=== PATIENT | female | born 1940 | race Caucasian/White ===

== ENCOUNTER 2023-09-18 02:54 | Inpatient (IN) | payer OTHER, MEDICARE ==
[~2023-09-18] VITALS: Ht 152.4 cm; Wt 63.5 kg
[~2023-09-18 02:54] MED LIST: ARMO150T6 PO; ARMOUR THYROID PO; BIOT25008 PO; EPIG1000 PO; GLUC-160 PO; HYDR-3927 PO; LISI20TA30 PO; LORA-258 PO; OMEG100037 PO; OMEP20CA15 PO; VENL75CA PO
[2023-09-18 03:01] VITALS: BP_SYST 102; PULSE 62; RESP 14; TEMP 98.2; O2SAT 98
[2023-09-18] MEDS: MORPHINE 4 MG INJ. 4 MG/ML VIAL IVP ONE (03:31)
[2023-09-18] MEDS ORDERED: ACETAMINOPHEN 325 MG TABLET PO PRN (04:00)
[2023-09-18] MEDS: NACL 0.9% 1,000 ML IV SCH (04:00)
[2023-09-18 04:43] LABS: BASOPHILS % (AUTO) 0.2 % (0.0-2.0); EOSINOPHILS % (AUTO) 0.5 % (0.0-4.0); HEMATOCRIT 40.5 % (36-48); HEMOGLOBIN 13.2 g/dL (12.0-16.0); LYMPHOCYTES # (AUTO) 0.8 K/uL (1.0-5.5); LYMPHOCYTES % (AUTO) 11.9 % (20.5-51.5); MEAN CORPUSCULAR HEMOGLOBIN 31 pg (27-31); MEAN CORPUSCULAR HGB CONC 33 % (32-36); MEAN CORPUSCULAR VOLUME 96 fL (79.0-98.0); MONOCYTES % (AUTO) 15.1 % (1.7-9.3); NEUTROPHILS # (AUTO) 4.9 K/uL (1.8-7.7); NEUTROPHILS % (AUTO) 72.3 % (40.0-70.0); PLATELET COUNT (AUTO) 155 K/uL (130-430); RED BLOOD CELL COUNT(AUTO) 4.23 MIL/uL (4.2-6.2); RED CELL DISTRIBUTION WIDTH 12.4 % (9.0-15.0); WHITE BLOOD COUNT (AUTO) 6.8 K/uL (4.8-10.8)
[2023-09-18 04:58] LABS: PROTHROMBIN TIME 10.8 SECS (9.5-12.5)
[2023-09-18 05:40] LABS: ANION GAP 5 (5-15); CALCIUM 8.2 mg/dL (8.4-11.0); CARBON DIOXIDE 30 mmol/L (23-29); CHLORIDE 108 mmol/L (98-107); CREATININE 0.87 mg/dL (0.55-1.30); GLUCOSE 138 mg/dL (74-106); POTASSIUM 4.6 mmol/L (3.5-5.1); SODIUM SERUM 143 mmol/L (136-145); UREA NITROGEN, BLOOD 30 mg/dL (8-21)
[2023-09-18] MEDS: MORPHINE 2 MG/ML INJ. SYRINGE IVP PRN ×2 (07:12→20:52)
[2023-09-18] MEDS ORDERED: HYDR-3917 PO (07:57)
[2023-09-18] MEDS ORDERED: CARV6.2554 PO (07:57)
[2023-09-18] MEDS ORDERED: ARMOUR PO (07:57)
[2023-09-18] MEDS ORDERED: MEMA10TA22 PO (07:57)
[2023-09-18] MEDS ORDERED: hydrALAZINE HCL 20 MG/ML VIAL IVP PRN (10:45)
[2023-09-18 11:51] VITALS: BP_SYST 108; PULSE 70; RESP 18; TEMP 98.2
[2023-09-18 12:00] VITALS: BP_SYST 107; PULSE 70; RESP 18; TEMP 98.2; O2SAT 96
[2023-09-18 12:51] VITALS: O2SAT 95
[2023-09-18 16:20] VITALS: BP_SYST 112; PULSE 68; RESP 18; TEMP 97.8; O2SAT 96
[2023-09-18 20:01] VITALS: TEMP 98
[2023-09-18] MEDS: ONDANSETRON HCL 4 MG/2 ML VIAL IVP PRN (20:53)
[2023-09-19] VITALS (7 sets, daily range): BP systolic 99–141; PULSE 80–116; RESP 16–18; TEMP 97.2–98.9; O2SAT 93–98
[2023-09-19 06:12] LABS: BASOPHILS % (AUTO) 0.3 % (0.0-2.0); EOSINOPHILS # (AUTO) 0.2 K/uL (0.0-0.4); EOSINOPHILS % (AUTO) 2.7 % (0.0-4.0); HEMATOCRIT 38.1 % (36-48); HEMOGLOBIN 12.5 g/dL (12.0-16.0); LYMPHOCYTES % (AUTO) 16.8 % (20.5-51.5); MEAN CORPUSCULAR HEMOGLOBIN 32 pg (27-31); MEAN CORPUSCULAR HGB CONC 33 % (32-36); MEAN CORPUSCULAR VOLUME 97 fL (79.0-98.0); MONOCYTES # (AUTO) 0.8 K/uL (0.0-1.0); MONOCYTES % (AUTO) 13.8 % (1.7-9.3); NEUTROPHILS # (AUTO) 4.1 K/uL (1.8-7.7); NEUTROPHILS % (AUTO) 66.4 % (40.0-70.0); PLATELET COUNT (AUTO) 135 K/uL (130-430); RED BLOOD CELL COUNT(AUTO) 3.94 MIL/uL (4.2-6.2); RED CELL DISTRIBUTION WIDTH 12.8 % (9.0-15.0); WHITE BLOOD COUNT (AUTO) 6.1 K/uL (4.8-10.8)
[2023-09-19 07:01] LABS: ALANINE AMINOTRANSFERASE 341 U/L (12-78); ALBUMIN 2.9 g/dL (3.4-4.8); ANION GAP 6 (5-15); ASPARTATE AMINOTRANSFERASE 246 U/L (10-37); CALCIUM 8.2 mg/dL (8.4-11.0); CARBON DIOXIDE 28 mmol/L (23-29); CHLORIDE 107 mmol/L (98-107); CREATININE 0.76 mg/dL (0.55-1.30); GLUCOSE 112 mg/dL (74-106); POTASSIUM 4.4 mmol/L (3.5-5.1); SODIUM SERUM 141 mmol/L (136-145); TOTAL BILIRUBIN 1.2 mg/dL (0.0-1.0); TOTAL PROTEIN, SERUM 6.1 g/dL (6.4-8.3); UREA NITROGEN, BLOOD 20 mg/dL (8-21)
[2023-09-19 10:34] LABS: BILIRUBIN,URINE NEGATIVE (NEGATIVE); BLOOD, URINE 1+ (NEGATIVE); CLARITY/URINE CLEAR (CLEAR); COLOR,URINE YELLOW (YELLOW); GLUCOSE,URINE NEGATIVE (NEGATIVE); KETONES,URINE NEGATIVE (NEGATIVE); LEUKOCYTE ESTERASE ,URINE NEGATIVE (NEGATIVE); NITRITE, URINE NEGATIVE (NEGATIVE); PROTEIN URINE NEGATIVE (NEGATIVE)
[2023-09-19 10:35] LABS: BACTERIA,URINE None Seen /HPF (None Seen); UROBILINOGEN,URINE 0.2 (0.2-1.0); WBC,URINE NONE SEEN /HPF (0-3)
[2023-09-19] MEDS ORDERED: ceFAZolin SODIUM 2 GM VIAL ONE (12:10)
[2023-09-19] MEDS ORDERED: LORazepam 1 MG TABLET PO SCH (12:15)
[2023-09-19] MEDS ORDERED: ONDANSETRON HCL 4 MG/2 ML VIAL IVP PRN (13:00)
[2023-09-19] MEDS ORDERED: hydrALAZINE HCL 20 MG/ML VIAL IVP PRN (13:00)
[2023-09-19] MEDS ORDERED: NALOXONE HCL 0.4 MG/ML AMP (NARCAN) IVP PRN (13:00)
[2023-09-19] MEDS ORDERED: HYDROmorphone 1 MG/ML INJ. CARTRIDGE IVP PRN (13:00)
[2023-09-19] MEDS ORDERED: MIDAZOLAM HCL 5 MG/5 ML VIAL IVP PRN (13:00)
[2023-09-19] MEDS ORDERED: METOCLOPRAMIDE HCL 10 MG/2 ML VIAL IVP PRN (13:00)
[2023-09-19] MEDS: ACETAMINOPHEN I.V. 1000 MG 100 ML IV ONE (14:09)
[2023-09-19] MEDS ORDERED: VENLAFAXINE HCL Non-Formulary 75 MG CAP.SR.24H PO SCH (21:00)
[2023-09-19] MEDS ORDERED: OMEGA-3/DHA/EPA/FISH OIL 1 GM CAPSULE PO SCH (21:00)
[2023-09-19] MEDS: MEMANTINE HCL 5 MG TABLET PO SCH (21:23)
[2023-09-19] MEDS: ceFAZolin SODIUM 2 GM in D5W 100 ML IV SCH (21:24)
[2023-09-20 00:36] VITALS: BP_SYST 98; PULSE 111; RESP 17; TEMP 98.5; O2SAT 93
[2023-09-20 06:36] LABS: BASOPHILS % (AUTO) 0.2 % (0.0-2.0); HEMOGLOBIN 7.9 g/dL (12.0-16.0); LYMPHOCYTES # (AUTO) 0.9 K/uL (1.0-5.5); LYMPHOCYTES % (AUTO) 7.3 % (20.5-51.5); MEAN CORPUSCULAR HEMOGLOBIN 32 pg (27-31); MEAN CORPUSCULAR HGB CONC 33 % (32-36); MEAN CORPUSCULAR VOLUME 96 fL (79.0-98.0); MONOCYTES # (AUTO) 1.5 K/uL (0.0-1.0); MONOCYTES % (AUTO) 12.9 % (1.7-9.3); NEUTROPHILS # (AUTO) 9.4 K/uL (1.8-7.7); NEUTROPHILS % (AUTO) 79.6 % (40.0-70.0); PLATELET COUNT (AUTO) 126 K/uL (130-430); RED CELL DISTRIBUTION WIDTH 12.4 % (9.0-15.0); WHITE BLOOD COUNT (AUTO) 11.8 K/uL (4.8-10.8)
[2023-09-20] MEDS: oxyCODONE HCL 5 MG TABLET PO PRN (06:41)
[2023-09-20 07:08] LABS: ANION GAP 9 (5-15); CALCIUM 7.6 mg/dL (8.4-11.0); CARBON DIOXIDE 22 mmol/L (23-29); CHLORIDE 110 mmol/L (98-107); CREATININE 0.76 mg/dL (0.55-1.30); GLUCOSE 153 mg/dL (74-106); POTASSIUM 4.1 mmol/L (3.5-5.1); SODIUM SERUM 141 mmol/L (136-145); UREA NITROGEN, BLOOD 19 mg/dL (8-21)
[2023-09-20 08:00] VITALS: BP_SYST 105; PULSE 115; RESP 18; TEMP 96.9; O2SAT 96
[2023-09-20] MEDS ORDERED: lisinopriL 20 MG TABLET PO SCH (09:00)
[2023-09-20] MEDS ORDERED: ARMOUR THYROID 120 MG PO SCH (09:00)
[2023-09-20] MEDS: PANTOPRAZOLE SODIUM 40 MG TAB PO SCH (09:21)
[2023-09-20] MEDS: CARVEDILOL 6.25 MG TABLET (COREG) PO SCH (09:22)
[2023-09-20] MEDS: THYROID 30 MG TABLET PO SCH (09:22)
[2023-09-20 12:34] VITALS: BP_SYST 91; PULSE 109; RESP 16; TEMP 98.7; O2SAT 91
[2023-09-20] MEDS: ENOXAPARIN SODIUM 40 MG/0.4 ML SYRINGE SUBCUT SCH (13:35)
[2023-09-20] MEDS: HYDROcodone/ACETAMIN 7.5-325 MG TAB PO PRN (13:37)
[2023-09-20 17:01] VITALS: BP_SYST 97; PULSE 106; RESP 16; TEMP 98.9; O2SAT 90
[2023-09-20 20:00] VITALS: O2SAT 96
[2023-09-21 01:29] VITALS: BP_SYST 102; PULSE 104; RESP 17; TEMP 98.2; O2SAT 98
[2023-09-21 06:08] LABS: BASOPHILS % (AUTO) 0.4 % (0.0-2.0); EOSINOPHILS # (AUTO) 0.1 K/uL (0.0-0.4); EOSINOPHILS % (AUTO) 1.5 % (0.0-4.0); LYMPHOCYTES # (AUTO) 1.1 K/uL (1.0-5.5); LYMPHOCYTES % (AUTO) 13.3 % (20.5-51.5); MEAN CORPUSCULAR HEMOGLOBIN 32 pg (27-31); MEAN CORPUSCULAR HGB CONC 34 % (32-36); MEAN CORPUSCULAR VOLUME 96 fL (79.0-98.0); MONOCYTES # (AUTO) 1.4 K/uL (0.0-1.0); MONOCYTES % (AUTO) 17.6 % (1.7-9.3); NEUTROPHILS # (AUTO) 5.4 K/uL (1.8-7.7); NEUTROPHILS % (AUTO) 67.2 % (40.0-70.0); PLATELET COUNT (AUTO) 115 K/uL (130-430); RED CELL DISTRIBUTION WIDTH 12.5 % (9.0-15.0)
[2023-09-21 06:50] LABS: ANION GAP 8 (5-15); CALCIUM 7.6 mg/dL (8.4-11.0); CARBON DIOXIDE 25 mmol/L (23-29); CHLORIDE 109 mmol/L (98-107); CREATININE 0.69 mg/dL (0.55-1.30); GLUCOSE 117 mg/dL (74-106); POTASSIUM 3.9 mmol/L (3.5-5.1); SODIUM SERUM 142 mmol/L (136-145); UREA NITROGEN, BLOOD 15 mg/dL (8-21)
[2023-09-21] MEDS ORDERED: HYDR-3921 PO (07:37)
[2023-09-21] MEDS ORDERED: LOVI40 SUBCUT (07:37)
[2023-09-21] MEDS ORDERED: ACET325T PO (07:37)
[2023-09-21 07:52] LABS: HEMOGLOBIN 6.8 g/dL (12.0-16.0)
[2023-09-21 07:53] LABS: HEMATOCRIT 20.2 % (36-48)
[2023-09-21 08:34] LABS: HEMATOCRIT 19.8 % (36-48); HEMOGLOBIN 6.6 g/dL (12.0-16.0)
[2023-09-21 11:09] VITALS: BP_SYST 94; PULSE 99; RESP 16; TEMP 99.8; O2SAT 96
[2023-09-21 15:24] VITALS: BP_SYST 133; PULSE 101; RESP 16; TEMP 98.3; O2SAT 96
[2023-09-21 16:25] VITALS: BP_SYST 109; PULSE 101; RESP 14; TEMP 98.9; O2SAT 97
[2023-09-21 16:43] VITALS: O2SAT 96
[2023-09-21 20:00] VITALS: BP_SYST 121; PULSE 100; RESP 18; TEMP 98; O2SAT 97
[2023-09-21 22:34] LABS: BASOPHILS % (AUTO) 0.5 % (0.0-2.0); EOSINOPHILS # (AUTO) 0.3 K/uL (0.0-0.4); EOSINOPHILS % (AUTO) 3.2 % (0.0-4.0); HEMATOCRIT 25.4 % (36-48); HEMOGLOBIN 8.8 g/dL (12.0-16.0); LYMPHOCYTES # (AUTO) 1.9 K/uL (1.0-5.5); LYMPHOCYTES % (AUTO) 22.3 % (20.5-51.5); MEAN CORPUSCULAR HEMOGLOBIN 33 pg (27-31); MEAN CORPUSCULAR HGB CONC 35 % (32-36); MEAN CORPUSCULAR VOLUME 94 fL (79.0-98.0); MONOCYTES # (AUTO) 1.4 K/uL (0.0-1.0); MONOCYTES % (AUTO) 16.7 % (1.7-9.3); NEUTROPHILS # (AUTO) 4.9 K/uL (1.8-7.7); NEUTROPHILS % (AUTO) 57.3 % (40.0-70.0); PLATELET COUNT (AUTO) 113 K/uL (130-430); RED BLOOD CELL COUNT(AUTO) 2.71 MIL/uL (4.2-6.2); RED CELL DISTRIBUTION WIDTH 13.4 % (9.0-15.0); WHITE BLOOD COUNT (AUTO) 8.6 K/uL (4.8-10.8)
[2023-09-22] VITALS: BP_SYST 107; PULSE 88; RESP 16; TEMP 97.4; O2SAT 96
[2023-09-22 08:00] VITALS: BP_SYST 141; RESP 14; TEMP 97; O2SAT 96
[2023-09-22 08:15] LABS: BASOPHILS % (AUTO) 0.2 % (0.0-2.0); EOSINOPHILS # (AUTO) 0.2 K/uL (0.0-0.4); EOSINOPHILS % (AUTO) 2.9 % (0.0-4.0); HEMATOCRIT 27.1 % (36-48); HEMOGLOBIN 9.2 g/dL (12.0-16.0); LYMPHOCYTES # (AUTO) 1.2 K/uL (1.0-5.5); LYMPHOCYTES % (AUTO) 16.2 % (20.5-51.5); MEAN CORPUSCULAR HEMOGLOBIN 32 pg (27-31); MEAN CORPUSCULAR HGB CONC 34 % (32-36); MEAN CORPUSCULAR VOLUME 95 fL (79.0-98.0); MONOCYTES # (AUTO) 1.1 K/uL (0.0-1.0); MONOCYTES % (AUTO) 14.7 % (1.7-9.3); NEUTROPHILS # (AUTO) 4.9 K/uL (1.8-7.7); PLATELET COUNT (AUTO) 123 K/uL (130-430); RED BLOOD CELL COUNT(AUTO) 2.86 MIL/uL (4.2-6.2); RED CELL DISTRIBUTION WIDTH 13.4 % (9.0-15.0); WHITE BLOOD COUNT (AUTO) 7.5 K/uL (4.8-10.8)
[2023-09-22 08:22] LABS: ANION GAP 5 (5-15); CALCIUM 7.9 mg/dL (8.4-11.0); CARBON DIOXIDE 27 mmol/L (23-29); CHLORIDE 110 mmol/L (98-107); CREATININE 0.63 mg/dL (0.55-1.30); GLUCOSE 107 mg/dL (74-106); POTASSIUM 3.9 mmol/L (3.5-5.1); SODIUM SERUM 142 mmol/L (136-145); UREA NITROGEN, BLOOD 11 mg/dL (8-21)
[2023-09-22 08:52] VITALS: BP_SYST 107; PULSE 88; O2SAT 96
[2023-09-22 11:13] VITALS: BP_SYST 127; PULSE 63; RESP 16; TEMP 98.3; O2SAT 99
[2023-09-22 11:50] VITALS: BP_SYST 139; PULSE 74; RESP 16; TEMP 98.3; O2SAT 96
[2023-09-22 12:00] VITALS: BP_SYST 127; PULSE 63; RESP 16; TEMP 98.3; O2SAT 99
== END 2023-09-22 13:35 | DRG 481 ==
LOC: SED 02:54 → SMU 03:47
PROVIDERS: ADMIT Internal Medicine; ATTEND Internal Medicine
PROC: 0QS606Z Reposition Right Upper Femur with Intramedullary Internal Fixation Device, Open Approach (ICD-10-PCS; principal; 2023-09-19 12:07)
PROC: 30233N1 Transfusion of Nonautologous Red Blood Cells into Peripheral Vein, Percutaneous Approach (ICD-10-PCS; 2023-09-21)
DX: S72.21XA Displaced subtrochanteric fracture of right femur, initial encounter for closed fracture (principal); D62 Acute posthemorrhagic anemia; E44.0 Moderate protein-calorie malnutrition; I27.20 Pulmonary hypertension, unspecified; E03.9 Hypothyroidism, unspecified; I10 Essential (primary) hypertension; W18.39XA Other fall on same level, initial encounter; F32.A Depression, unspecified; F41.9 Anxiety disorder, unspecified; Z90.49 Acquired absence of other specified parts of digestive tract; Z79.899 Other long term (current) drug therapy; Y93.89 Activity, other specified; Y92.89 Other specified places as the place of occurrence of the external cause; Y99.8 Other external cause status; Z68.27 Body mass index [BMI] 27.0-27.9, adult
CPT/HCPCS: 36415; 71045; 73552; 76000; 80048; 80053; 81000; 81001; 81015; 85018; 85025; 85610; 85730; 86886; 86900; 86901; 86920; 87081; 93005; 93306; 94010; 94070; 94760; 96361; 96374; 97110-GP; 97116-GP; 97530-GP; 99285; A4649; C1713; C1769; J0131; J1100; J1650; J2270; J2405; J2704; J3465; J3490; J7030; J7060; P9021